=== PATIENT | male | born 1980 | race Caucasian/White ===

== ENCOUNTER 2024-06-25 09:53 | Emergency (ER) | payer OTHER, SELFPAY ==
[2024-06-25 09:55] VITALS: BP 167/109; PULSE 86; RESP 16; TEMP 36.7; BMI 22.3
[2024-06-25 10:06] VITALS: O2SAT 93
--- NOTE | 2024-06-25 10:39 | EKG12_ITS ---
Test Reason : Blood Pressure : */* mmHG Vent. Rate : 88 BPM Atrial Rate : 88 BPM P-R Int : 160 ms QRS Dur : 92 ms QT Int : 350 ms P-R-T Axes : 47 -21 32 degrees QTcB Int : 423 ms Normal sinus rhythm Normal ECG Confirmed by RACHAEL MAHER, RENAY ([id number]), photograph editor MARISELA GOSS ([id number]) on 06/27/2024 12:55:52 PM Referred By: ANA Confirmed By: RENAY CANO MD
--- NOTE | 2024-06-25 10:40 | EDS_ITS ---
HPI History of Present Illness Chief Complaint: General Illness PFSH PFSH Allergy/AdvReac Type Severity Reaction Status Date / Time No Known Allergies Allergy Verified 06/25/24 09:54 EXAM Physical Exam Const Vital Signs: 06/25/24 09:55 06/25/24 10:06 Temperature 98.1 F Temperature Source Oral Pulse Rate 86 Respiratory Rate 16 Blood Pressure 167/109 H Blood Pressure Mean 128 Pulse Ox 93 Oxygen Delivery Method Room Air Discharge Plan Triage Chief Complaint: General Illness ED Provider: Duglas Jiménez Dx/Rx/DC Orders Primary Care Provider: NOT,DEFINED Referrals: NOT,DEFINED [Primary Care Provider] - Print Language: R[place]an
--- NOTE | 2024-06-25 10:40 | EX.ED.DYSGE1 ---
HPI History of Present Illness Chief Complaint: General Illness Informant: patient Onset/Context/Timing Onset: Today Context: Sudden Onset Timing: Continuous Quality: Soreness Location: Chest Worsened by: Nothing Relieved by: Nothing Narrative Narrative: Patient presents with shortness of breath that began today. Patient states it began rather suddenly. Patient states he felt some soreness in his chest. Patient admits to a cough with some green sputum. Patient admits to a low-grade fever of 100 at home. Patient admits to sore throat, ear pain, and rhinorrhea. Patient denies any nausea or vomiting. Patient states nothing makes his breathing worse and nothing makes it better. Patient also admits to some urinary urgency. Patient states he recently traveled to [place] for a hair transplant. PFSH PFS Medical History no medical history no medical history Allergy/AdvReac Type Severity Reaction Status Date / Time No Known Allergies Allergy Verified 06/25/24 09:54 Surgical History (Updated 06/25/24 @ 12:[address] Duglas Jiménez DO) Hx of hand surgery Social History Smoking Status: Never smoker ROS ROS ED Constitutional Constitutional ED: Reports chills and fever(s) Eyes Eyes: Denies blurry vision or change in vision ENT ENT ED: Reports ear pain, rhinorrhea and sore throat Cardiovascular Cardiovascular: Reports chest pain; Denies palpitations Respiratory/Chest Respiratory/Chest: Reports cough and dyspnea Gastrointestinal Gastrointestinal: Reports nausea; Denies vomiting Genitourinary Genitourinary ED: Denies dysuria or hematuria Musculoskeletal Musculoskeletal: Denies back pain or neck pain Integumentary Denies abscess or rash Neurologic Neurologic: Reports headache(s); Denies weakness Allergic/Immunologic Allergic/Immunologic ED: Denies mouth swelling or urticaria EXAM Physical Exam Const Vital Signs: 06/25/24 09:55 06/25/24 10:06 Temperature 98.1 F Temperature Source Oral Pulse Rate 86 Respiratory Rate 16 Blood Pressure 167/109 H Blood Pressure Mean 128 Pulse Ox 93 Oxygen Delivery Method Room Air Positive well nourished and well developed General Appearance ED: well developed and NAD HEENT Reports moist mucous membranes Neck supple and no JVD Resp normal respiratory effort and clear to auscultation bilaterally Cardio regular rate and regular rhythm GI non-tender and non-distended Palpation: soft Extremity normal to inspection General Extremety ED: Negative for edema or tenderness General Extremity: Negative for edema Neuro oriented x3, CN's II-XII intact bilaterally and no sensory deficits noted Sensorium / Orientation: alert Motor Exam: strength 5/5 throughout Psych mental status grossly normal MDM MDM MDM Narrative Medical decision making narrative: Differential diagnosis includes pneumonia, pulmonary embolism, cardiac dysrhythmia, cardiac ischemia, electrolyte abnormality, viral illness, and anxiety. EKG will be obtained to assess for cardiac dysrhythmia and cardiac ischemia. COVID-19, influenza, and RSV PCR will be obtained to assess for viral illness. CBC will be obtained to assess for leukocytosis and anemia. Basic metabolic profile will be obtained to assess for electrolyte abnormality and renal function. High-sensitivity troponin will be obtained to assess for cardiac ischemia. D-dimer will be obtained to assess for pulmonary embolism. Urinalysis will be obtained to assess for urinary tract infection and hematuria. Lab Data Attestation: I reviewed the patient's lab results. Lab results narrative: CBC was reviewed and was essentially within normal limits. Basic metabolic profile was reviewed and was within normal limits. High-sensitivity troponin was reviewed and was normal at 6. D-dimer was reviewed and was normal at 0.3. Urinalysis was reviewed. There is no evidence of urinary tract infection or hematuria. COVID-19 PCR was reviewed and was negative. Influenza PCR was reviewed and was positive for influenza A and negative for influenza B. RSV PCR was reviewed and was negative. EKG Initial EKG: Attestation: I personally reviewed and interpreted this EKG as follows: Interpretation: Sinus Rhythm (88) and No Acute Injury Pattern Comments: EKG was obtained. On my independent interpretation, it showed a normal sinus rhythm with a rate of 88. MN interval, QRS interval, and QTc intervals were all normal. [place] was normal. There are no acute ST or T wave changes. Prior EKG tracings: not available for review Prior: No Prior Treatment and Re-Evaluation :: Patient was given a DuoNeb aerosol here. Patient was advised of his findings. Since patient was positive for influenza A, I do not feel chest x-ray is necessary at this time. Patient was instructed to drink plenty of fluids. Patient was instructed to follow-up with his primary care physician in 5 to 7 days. Patient understood and was agreeable with the plan. All questions were answered. Discharge Plan Triage Chief Complaint: General Illness ED Provider: Duglas Jiménez Dx/Rx/DC Orders Clinical Impression: Influenza A, Dyspnea Instructions: ED Influenza (Adult) Primary Care Provider: Care Physician,No Primary Referrals: NOT,DEFINED [Non-Staff] - 5-7 Days Print Language: Sinhala Disposition Disposition: Home, Self Care
[2024-06-25 11:00] VITALS: BP 159/97; PULSE 91; RESP 20; TEMP 36.7; O2SAT 90
[2024-06-25] MEDS: Ipratropium/Albuterol Sulfate 3 ML AMPUL.NEB INHALATION (11:05)
[2024-06-25 11:06] VITALS: PULSE 86; RESP 16
[2024-06-25 11:06] LABS: Absolute Lymphocyte Count 0.24 X10^3/uL (0.83-4.51); Basophil# 0.03 X10^3/uL; Basophil% 0.6 % (0-1); Eosinophil# 0.06 X10^3/uL; Eosinophils% 1.2 % (0-5); Hematocrit 39.3 % (40-54); Hemoglobin 13.5 g/dL (13.0-16.5); Lymphocyte # 0.24 X10^3/ul (0.83-4.51); Mean Corp Hgb Conc 34.4 g/dL (32-36); Mean Corpuscular Hgb 32.2 pg (27.0-32.0); Mean Corpuscular Volume 93.8 fL (80-94); Mean Platelet Vol. 9.8 fl (6.2-12.0); Monocyte# 0.42 X10^3/uL; Monocyte% 8.7 % (0-10); NRBC Flagged by Analyzer 0 % (0-5); Neutrophil # 4.02 X10^3/uL (2.7-7.7); Neutrophil % 83.7 % (47-70); POSITIVE DIFFERENTIAL YES; Platelet Count 133 K/mm3 (150-450); RBC Distribution Width CV 12.4 % (11.6-14.6); RBC Distribution Width SD 42.7 fl (35.1-43.9); Red Blood Count 4.19 M/mm3 (4.6-6.2); White Blood Count 4.8 K/mm3 (4.4-11.0)
[2024-06-25 11:27] LABS: Anion Gap 6 (5-15); BUN 16 mg/dL (7-18); BUN/Creat Ratio 19.5 RATIO (10-20); Calcium,Total 8.9 mg/dL (8.5-10.1); Chloride 107 mmol/L (98-107); Creatinine, Serum 0.82 mg/dL (0.70-1.30); EST Glomerular Filtration Rate 108 mL/min (>60); Est Glom Filt Rate - Afr Amer 130 mL/min (>60); Estimated Creatinine Clearance 116.78 ml/min; Glucose 107 mg/dL (74-106); Potassium 3.9 mmol/L (3.5-5.1); Sodium Level 137 mmol/L (136-145); Troponin-I HS 6 pg/mL (3.0-78.0)
[2024-06-25 11:38] LABS: Bacteria 0 SEEN /hpf (None Seen); Mucous, Urine 0 SEEN /hpf (<or=2+); White Blood Cells 0 SEEN /hpf (0-5)
[2024-06-25 11:39] LABS: Color, Urine Yellow (Yellow); Glucose, Dipstick Normal (Normal); Ketone-Dipstick Negative (Negative); Leukocyte Esterase-Dipstick Negative /ul (Negative); Nitrite-Dipstick Negative (Negative); Occult Blood-Urine Negative /ul (Negative); Protein-Dipstick 15 mg/dl (Negative); Specific Gravity, Urine 1.015 (1.002-1.030); Urine Bilirubin Dipstick Negative (Negative); Urine Clarity Clear (Clear); Urine Urobilinogen Normal (Normal); Urine pH 6.5 (5.0 - 8.0)
[2024-06-25 12:10] VITALS: PULSE 88; RESP 23; O2SAT 97
[2024-06-25 12:17] LABS: Red Blood Cells-Urine 0 SEEN /hpf (0-5); Squamous Epithelial Cells - UA 0-5 SEEN /hpf (0-5)
--- NOTE | 2024-06-25 18:10 | CM.ED ---
Social Work Reason for visit: No PCP Patient verified that he does not currently have a PCP. [facility] provider list given. No further needs identified. Sharda Peck, [employer] CHIEF, [employer] TRAIN OPERATOR
== END 2024-06-25 13:08 | disposition home or self-care (01) ==
PROVIDERS: Emergency Provider Emergency Medicine; Visit Provider Emergency Medicine
DX: J10.1 Influenza due to other identified influenza virus with other respiratory manifestations (principal)
CPT/HCPCS: 80048; 81001; 84484; 85025; 85379; 87631; 93005; 94640; 99284; A4216

== ENCOUNTER 2024-11-24 03:29 | Emergency (ER) | payer OTHER, SELFPAY ==
[2024-11-24 03:31] VITALS: BP 150/107; PULSE 63; RESP 18; TEMP 36.2; O2SAT 98; BMI 23.1
== END 2024-11-24 03:48 | disposition left against medical advice (07) ==
LOC: ED 04:00
DX: Z53.21 Procedure and treatment not carried out due to patient leaving prior to being seen by health care provider (principal)